=== PATIENT | male | born 1985 | race African-American/Black ===

== ENCOUNTER → 2016-11-16 | Outpatient (CLI) | payer OTHER ==
[~2016-11-16] MED LIST: LORTAB 5/500 TA1 TA1 PO
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
== END | disposition home or self-care (01) ==
LOC: SRAD 15:34
DX: S99.921A Unspecified injury of right foot, initial encounter (principal); M79.674 Pain in right toe(s)
CPT/HCPCS: 73630